=== PATIENT | female | born 1975 | race Caucasian/White ===

== ENCOUNTER 2016-12-05 11:50 | Emergency (ER) | payer OTHER ==
[2016-12-05] MEDS ORDERED: DEXAMETHASONE 10 MG/ML VIAL PO STA (13:05)
[2016-12-05] MEDS ORDERED: DEXAMETHASONE 10 MG/ML VIAL ONE (13:06)
[2016-12-05] MEDS ORDERED: CHERRY SYRUP 10 ML UDC PO ONE (13:06)
== END 2016-12-05 13:15 | disposition home or self-care (01) ==
DX: J02.9 Acute pharyngitis, unspecified (principal); R03.0 Elevated blood-pressure reading, without diagnosis of hypertension
CPT/HCPCS: 87070; 87430; 99283; A9270